=== PATIENT | male | born 1960 | race Caucasian/White ===

== ENCOUNTER 2024-03-02 09:05 | Observation (INO) ==
--- NOTE | 2024-02-19 11:22 | Anesthesiology Consultation ---
Date of Service February 19, 2024 Assessment & Plan (1) Encounter for pre-operative examination: Chart Review Chart Review: Acceptable Risk for Surgery and Patient NOT seen in Pre Admission Testing Consults Requested none History Surgery Operation Date: 03/02/24 08:50 Proposed Procedures p TURP (Transurethral Resection of Prostate) - Daryl Haque MD Height/Weight Height: 6 ft Weight: 111.13 kg Allergies Allergy/AdvReac Type Severity Reaction Status Date / Time No Known Allergies Allergy Verified 02/17/24 08:00 Medications Home Medications Medication Instructions Recorded Confirmed Last Taken aspirin 325 mg tablet 325 mg PO QAM 01/28/24 02/17/24 Unknown canagliflozin 300 mg tablet 300 mg PO QAM 01/28/24 02/17/24 Unknown (Invokana) citalopram 10 mg tablet (Celexa) 10 mg PO QAM 01/28/24 02/17/24 Unknown famotidine 20 mg tablet 20 mg PO HS 01/28/24 02/17/24 Unknown glipizide 10 mg tablet 10 mg PO BID 01/28/24 02/17/24 Unknown insulin glargine 100 unit/mL 12 unit subcut BID 01/28/24 02/17/24 Unknown subcutaneous solution (Lantus U-100 Insulin) metformin 1,000 mg tablet 1,000 mg PO BID 01/28/24 02/17/24 Unknown olmesartan 20 mg tablet 20 mg PO QAM 01/28/24 02/17/24 Unknown rosuvastatin 20 mg tablet (Crestor) 20 mg PO HS 01/28/24 02/17/24 Unknown semaglutide 2 mg/dose (8 mg/3 mL) 2 mg subcut Q7D 01/28/24 02/17/24 Unknown subcutaneous pen injector (Ozempic) tamsulosin 0.4 mg capsule (Flomax) 0.4 mg PO BID 01/28/24 02/17/24 Unknown Past Medical History Medical History Nausea and vomiting after administration of anesthetic agent Anxiety and depression Hx of myocardial infarction 2018>double bypass, [facility]; f/u [facility] History of asthma no inhaler for at least 30 years, no current issues Metabolic syndrome X Dyslipidemia Hypertension GERD (gastroesophageal reflux disease) Diabetes mellitus, type 2 IDDM BPH loc w urin obs/LUTS Past Surgical History Surgical History History of esophagogastroduodenoscopy (EGD) Hx of colonoscopy Hx of bilateral cataract extraction [place] teeth extracted History of cardiac cath 2018, [place], [facility], no stents>CABG w/2 bypasses; f/u [facility] Hx of CABG 2018, [place], double bypass [facility]; f/u [facility] Social History Smoking Status: Never smoker Do You Dip or Chew Tobacco: No Hx Alcohol Use: Yes alcohol intake frequency: holidays/special occasions only Hx Substance Use: No substance use type: does not use Testing Electrocardiogram Date: 02/06/24 Findings: + NSR @ [facility], nonspecific ST/T wave abnormality
[2024-03-02] MEDS ORDERED: MIDAZOLAM HCL 1 MG/ML 2ML VIAL ONE (10:12)
[2024-03-02] MEDS ORDERED: PROPOFOL IV EMULSION 10 MG/ML 20 ML VIAL IV ONE ×2 (10:12→11:11)
[2024-03-02] MEDS ORDERED: DEXAMETHASONE SOD INJ 4 MG/ML VIAL ONE (10:12)
[2024-03-02] MEDS ORDERED: LIDOCAINE 2% 2 ML VIAL/AMP(20MG/ML) INFIL ONE (10:12)
[2024-03-02] MEDS ORDERED: ONDANSETRON INJ 2 MG/ML 2 ML VIAL ONE (10:12)
[2024-03-02] MEDS ORDERED: ONDANSETRON INJ 2 MG/ML 2 ML VIAL IV PRN (10:13)
[2024-03-02] MEDS ORDERED: PROMETHAZINE HCL 6.25 MG in SODIUM CHLORIDE 0.9% 50 ML IV PRN (10:13)
[2024-03-02] MEDS ORDERED: fentaNYL citrate PF 100 MCG/2 ML VIAL IV PRN (10:13)
[2024-03-02] MEDS ORDERED: ePHEDrine sulfate 50 MG/ML AMP IV PRN (10:13)
[2024-03-02] MEDS ORDERED: fentaNYL citrate PF 100 MCG/2 ML VIAL ONE ×2 (10:13→11:14)
[2024-03-02] MEDS ORDERED: ATROPINE SULFATE 0.1 MG/ML 10ML SYR IV PRN (10:13)
[2024-03-02] MEDS: LR 15ML/HR IV SCH (10:20)
--- NOTE | 2024-03-02 10:49 | History & Physical Bridge Note ---
Date of Service March 02, 2024 History & Physical Bridge Note I have examined the patient, reviewed the History & Physical and in the interval since the performance of the History & Physical I have noted the following changes of clinical significance: no changes noted
[2024-03-02] MEDS: CIPROFLOXACIN / D5W 400 MG/200 ML BAG IV SCH ×2 (11:08→22:02)
[2024-03-02] MEDS ORDERED: HYDROCODONE/ACETAMOPHEN 5/325MG TAB PO PRN (11:42)
[2024-03-02] MEDS ORDERED: ACETAMINOPHEN 325 MG TAB PO PRN (11:42)
--- NOTE | 2024-03-02 11:52 | Operative Report ---
PG Post Operative Report Pre & Post Diagnosis Operation Date: 03/02/24 10:40 Pre-Op Diagnosis: Benign Prostatic Hyperplasia Post-Op Diagnosis: Benign Prostatic Hyperplasia I identified the patient and participated in the time-out.: Yes Procedure Operation Date: 03/02/24 10:40 Actual Procedures p TURP (Transurethral Resection of Prostate), Urethral Dilation(Not Applicable) - Daryl Haque MD Surgeon Daryl Haque MD Pipefitter none Estimated Blood Loss 5 Findings Consistent with Post-Op Diagnosis Specimens Prostate chips Description of Procedure The patient was identified in the preoperative holding area, appropriate informed consents were reviewed and completed and the patient was transferred to the operative suite. Upon arrival, appropriate antibiotics and anesthesia were administered and the patient was placed in dorsal lithotomy position and prepped and draped in sterile fashion. To begin the case I attempted to pass a 26 [place] resectoscope, however, his meatus could not accommodate the scope. In turn I performed a meatal dilation utilizing male urethral sounds. I dilated from 24 Burkinan to 30 [place]an without difficulty. There was no trauma from the dilation. I was unable to pass the scope without difficulty and inspection of his urethra was unremarkable. He has no strictures. He has a very large prostate with lateral lobe obstruction as well as intravesical intrusion and an intravesical median lobe. His ureteral orifices were identified behind the median lobe and the remainder of his bladder was healthy. Following my inspection I began resecting. Utilizing a loop electrode I resected the intravesical median lobe and the intravesical tissue in general. This flatten the bladder neck substantially and allow me to resect the left and right lateral lobe tissue without difficulty. I completed my resection by trimming some apical tissue. Hemostasis was excellent. All chips were irrigated out of the bladder. He was reversed of anesthesia after confirming an open and patent prostatic urethra. Specimen was passed off the table for pathology I attest to the content of the Intraoperative Record and any orders documented therein. Any exceptions are noted below.
--- NOTE | 2024-03-02 12:07 | Anesthesiology Progress Note ---
Date of Service March 02, 2024 Anesthesia Post Procedure Vital Signs Vital Signs: Temp Pulse Pulse Resp BP Pulse Ox O2 Del Method 03/02/24 12:05 80 17 123/67 99 Oxymask 03/02/24 11:55 36 C L 84 13 142/79 H 93 Oxymask 03/02/24 09:37 36.7 C 74 20 130/64 94 Room Air O2 Flow Rate 03/02/24 12:05 12 03/02/24 11:55 12 03/02/24 09:37 Transfer of Care Handoff Completed per policy Notes Mental Status: alert / awake / arousable Patient Amnestic to Procedure: Yes Nausea / Vomiting: adequately controlled Pain: adequately controlled Airway Patency, RR, SpO2: stable & adequate BP & HR: stable & adequate Hydration State: stable & adequate Anesthetic Complications: no major complications apparent
[2024-03-02] MEDS: SODIUM CHLORIDE 0.9% 1,000 ML IV SCH ×2 (14:03→14:13)
[2024-03-02] MEDS ORDERED: GLUCOSE 10 TAB/TUBE PO PRN (14:30)
[2024-03-02] MEDS ORDERED: GLUCOSE 40% GEL 15 GM TUBE PO PRN (14:30)
[2024-03-02] MEDS ORDERED: DEXTROSE 50% 50 ML SYRINGE IV PRN (14:30)
[2024-03-02] MEDS ORDERED: GLUCAGON FOR INJ 1 MG VIAL IM PRN (14:30)
[2024-03-02] MEDS ORDERED: CARBOHYDRATES FOR HYPOGLYCEMIA PO PRN (14:30)
[2024-03-02] MEDS ORDERED: PHARMACY GLYCEMIC MGMT CONSULT PRN (15:26)
[2024-03-02] MEDS: INSULIN ASPART PER UNIT CHARGE SC SCH (18:02)
[2024-03-02] MEDS: LANTUS PER UNIT CHARGE SC ONE (18:03)
[2024-03-02] MEDS ORDERED: LANTUS PER UNIT CHARGE SQ SCH (21:00)
[2024-03-02] MEDS: ROSUVASTATIN CALCIUM 20 MG TAB PO SCH (22:00)
[2024-03-02] MEDS: METOPROLOL SUCC 25MG EXT REL TAB PO SCH (22:01)
[2024-03-02] MEDS: FAMOTIDINE 20 MG TAB PO SCH (22:01)
[2024-03-02] MEDS: ACETAMINOPHEN 325 MG TAB PO PRN (22:13)
[2024-03-03] MEDS: INSULIN ASPART PER UNIT CHARGE SC ONE (02:52)
[2024-03-03 08:07] LABS: Estimated Average Glucose 166 mg/dl; Hemoglobin A1C 7.4 % (4.5-5.6)
--- NOTE | 2024-03-03 08:28 | Urology Progress Note ---
Date of Service March 03, 2024 Assessment & Plan (1) BPH loc w urin obs/LUTS: Plan Postop day #1 status post TURP Voiding trial now discharge home Admission and Anticipated Discharge Date Admission Date: March 02, 2024 Subjective 63-year-old status post TURP Doing very well this morning Plan for voiding trial and discharge home Physical Exam Physical Exam: Blood-tinged but translucent urine Results & Data Vital Signs (Past 12 Hours) Vital Signs Temp Pulse Resp BP Pulse Ox O2 Del Method 03/03/24 07:04 36.6 C 72 16 113/66 95 Room Air 03/03/24 03:21 36.7 C 80 16 118/71 94 Room Air 03/02/24 23:19 36.6 C 69 18 127/69 94 Room Air PG Care Time/CCT Total # of Minutes Spent Total Time Spent with Patient: Total time spent is greater than 50% in coordination of care (as documented) at patient's floor/unit and/or counseling patient: Coding Level of Care Code None Diagnoses BPH loc w urin obs/LUTS N40.1
[2024-03-03] MEDS: CITALOPRAM 20 MG TAB PO SCH (09:21)
[2024-03-03] MEDS: LOSARTAN POTASSIUM 50 MG TAB PO SCH (09:22)
[2024-03-03] MEDS: LANTUS PER UNIT CHARGE SC SCH (09:29)
--- NOTE | 2024-03-03 12:55 | Discharge Summary ---
Date of Service March 03, 2024 Admission HPI Per Admitting Provider Patient with BPH with urinary obstruction here for transurethral resection of prostate Admission Exam Per Admitting Provider Constitutional well developed and well nourished Neck neck nontender Respiratory normal respiratory effort; no respiratory distress and does not use accessory muscles Cardiovascular Rate/Rhythm: regular rate Vessels: radial pulses present Extremities: no edema Gastrointestinal (Abdomen) Inspection/Auscultation: abdomen normal to inspection Percussion/Palpation: abdomen soft; abdomen nontender and no guarding Musculoskeletal Head/Neck/Chest: normocephalic and head atraumatic Extremities: extremities normal to inspection Skin no rashes and no lesions Trauma: no evidence of skin trauma Neurologic awake; not obtunded Speech / Cognition: normal speech Motor/Sensory: no tremor Psychiatric Orientation: alert and oriented x 3 Genitourinary no CVA tenderness Lymphatic no lymphadenopathy Principal Diagnosis BPH with urinary obstruction Discharge Exam Constitutional well developed and well nourished; no acute distress Respiratory normal respiratory effort; no respiratory distress and no labored breathing Gastrointestinal (Abdomen) Inspection/Auscultation: abdomen normal to inspection Musculoskeletal Head/Neck/Chest: normocephalic Neurologic moves all extremities and awake Psychiatric Orientation: alert and oriented x 3 Discharge Data Allergies Allergy/AdvReac Type Severity Reaction Status Date / Time No Known Allergies Allergy Verified 03/02/24 09:30 Procedures Performed Operation Date: 03/02/24 10:40 Actual Procedures p TURP (Transurethral Resection of Prostate), Urethral Dilation(Not Applicable) - Daryl Haque MD Hospital Course (1) BPH loc w urin obs/LUTS: Plan Postop day #1 status post TURP Voiding trial now discharge home Patient voiding well after catheter removal He is ready for discharge noworders placed Outpatient follow-up in place Expected clinical course reviewed, all questions answered Total Time Total Time Spent Total Time Spent (In Minutes): 29 Discharge Plan Discharge Items Patient Disposition: Home - Self-Care Reason For Visit: Benign Prostatic Hyperplasia with Lower Urinary Tr Discharge Diagnosis: BPH w/ symptoms Activity: Resume your previous activity Lifting: Gradually increase as tolerated Bathing: No limitations Sexual Activity: When tolerated Exercise/Sports: Gradually increase as tolerated Non-emergency contact: Surgeon and Urologist Call non-emergency contact if: you have any medication questions, your pain is concerning for you, you have a fever and your temperature is above 101.5 Follow-up/Referrals: Violeta Kirk CRNP [Nurse Practitioner] - 03/17/24 3:[address] MD [Primary Care Provider] - 03/09/24 12:45 pm Diet: Carb Consistent or DM2 Addtl Attending Provider Instructions: Please take all medications as prescribed and keep follow-ups as scheduled. Please call our office at [phone] with any questions, concerns or need to reschedule appointments for any reason. We are happy to assist you. While catheter is in place, please wash with warm soapy water and a fresh washcloth twice a day with mild bar soap (Dove, Dial, etc.). Your nursing visit appointment to have your catheter removed should already be made, if you have any question regarding this, please call our office. Complete antibiotics as prescribed, if indicated. It is okay to take AZO (available over the counter) as needed for a few days to relieve burning with urination. This may cause your urine or feces to turn an orangish-color. This is expected. The only exception is if you have been prescribed Pyridium (phenazopyridine), this is the same medication and should not take AZO be taken in addition to prescription version. Please do not drive, drink alcohol or operate machinery while taking prescription pain medication. We recommend continuing a stool softener (i.e. Colace) to prevent constipation/straining for at least two weeks after your procedure. Some blood is to be expected in your urine as you heal, you may even see recurrences of blood in your urine for up to 4-6 months after your procedure. Drink plenty of fluids, avoid sexual or strenuous exercise and do not lift >25 pounds until your follow-up. Call [facility] at [phone] promptly if you experience: Fever of 101F or greater Pain thats not controlled with medicine Trouble urinating or inability to urinate Dark, bloody urine for more than 12 hours Pending Studies at Discharge: No Stand-Alone Forms: My [facility] Medications and DC Order Prescriptions: New ciprofloxacin HCl [Cipro] 500 mg tablet 500 mg PO BID Qty: 6 0RF phenazopyridine [Pyridium] 200 mg tablet 200 mg PO Q8H PRN (Reason: pain) Qty: 10 0RF Continued glipizide 10 mg tablet 10 mg PO BID olmesartan 20 mg tablet 20 mg PO QAM citalopram [Celexa] 10 mg tablet 10 mg PO QAM rosuvastatin [Crestor] 20 mg tablet 20 mg PO HS metformin 1,000 mg tablet 1,000 mg PO BID famotidine 20 mg tablet 20 mg PO HS Invokana 300 mg tablet 300 mg PO QAM insulin glargine [Lantus U-100 Insulin] 100 unit/mL solution 12 unit subcut BID Ozempic 2 mg/dose (8 mg/3 mL) pen injector 2 mg subcut Q7D Patient Comments: mondays metoprolol succinate 25 mg Tablet Extended Release 24 Hr 12.5 mg PO BID Held aspirin 325 mg tablet 325 mg PO QAM Hold Instructions: Resume on 03/05/24. presuming urine is clearing appropriately Discontinued tamsulosin [Flomax] 0.4 mg capsule 0.4 mg PO BID Discharge Orders: Discharge Order (Routine); Ordered 03/03/24 Ordered By: Laura Tristan/Other Patient Handouts: Managing Type 2 Diabetes Admission Data Admit Date/Time: 03/02/24 11:50 Attending Provider: Daryl Haque Admit Provider: Daryl Haque Primary Care Provider: Ave Wiley Other Interventions: Discharge Summary Assessment (RN) Last Done: 03/03/24 15:12 Coding Level of Care Code 86298 IN/OBS DISCH 30 MIN/LESS Diagnoses BPH loc w urin obs/LUTS N40.1
--- NOTE | 2024-03-03 13:47 | Pharmacy Report ---
Pharmacy Glycemic Short Note 2 - Date of Service March 03, 2024 - Glycemic Short BSG Results (Last 24 hours): 03/02/24 03/02/24 03/02/24 16:58 17:01 17:04 POC Glucose 450 H* 293 H 276 H 03/02/24 03/03/24 03/03/24 20:18 02:49 07:34 POC Glucose 262 H 187 H 242 H 03/03/24 11:58 POC Glucose 161 H OUTPATIENT ANTIDIABETIC REGIMEN: * Invokanna 300mg PO QAM * glipizide 10mg PO BID * insulin glargine 12 units SQ BID * metformin 1000mg PO BID * Ozempic 2mg QTu * HbA1c 7.4% (03/03/24) ASSESSMENT: * Kylie is a 63 YOM admitted s/p TURP with a history of T2DM. Pharmacy has been consulted to assist with glycemic management while inpatient. * Fasting BSG this AM elevated, likely due to perioperative steroids (18 units given to cover yesterday evening), will initiate maintenance basal insulin at a 20% reduction from his home dosage. He received perioperative ciprofloxacin. * Novolog inititated at a weight based stress of 1.5. PLAN FOR INPATIENT GLYCEMIC CONTROL: * Hold outpatient oral diabetes medications * Basal insulin * Lantus 10 units SQ BID * Bolus insulin * NovoLog per scale ACHS or Q6hrs while NPO * Goal Range: Low 110 mg/dL - High 140 mg/dL * Correction Factor: 25 mg/dL/unit * Nutritional / Prandial insulin per carb ratio of 1 unit per 8 grams CHO consumed
== END 2024-03-03 15:11 | disposition home or self-care (01) ==
LOC: 3W 09:05 → ASU 09:05
DX: Z79.85 Long-term (current) use of injectable non-insulin antidiabetic drugs; I25.2 Old myocardial infarction; Z79.84 Long term (current) use of oral hypoglycemic drugs; Z95.1 Presence of aortocoronary bypass graft; N13.8 Other obstructive and reflux uropathy; N40.1 Benign prostatic hyperplasia with lower urinary tract symptoms; Z79.4 Long term (current) use of insulin; I10 Essential (primary) hypertension; Z79.82 Long term (current) use of aspirin; E11.9 Type 2 diabetes mellitus without complications